=== PATIENT | female | born 1955 | race Caucasian/White ===

== ENCOUNTER → 2017-03-14 | Outpatient (CLI) | payer OTHER | LOC: FIMAGING 11:52 | PROVIDERS: ATTEND Orthopaedic Surgery Orthopaedic Surgery of the Spine | DX: M54.5 Low back pain (principal); M21.752 Unequal limb length (acquired), left femur; Z98.1 Arthrodesis status ==

== ENCOUNTER → 2017-03-20 | Outpatient (CLI) | payer OTHER | LOC: FIMAGING 09:53 | DX: Z12.31 Encounter for screening mammogram for malignant neoplasm of breast (principal); Z80.3 Family history of malignant neoplasm of breast | CPT/HCPCS: G0202 ==

== ENCOUNTER → 2017-06-28 | Outpatient (CLI) | payer OTHER | LOC: FIMAGING 08:03 | PROVIDERS: ATTEND Internal Medicine | DX: K82.4 Cholesterolosis of gallbladder (principal); R91.1 Solitary pulmonary nodule; Z87.891 Personal history of nicotine dependence ==

== ENCOUNTER → 2017-08-15 | Outpatient (CLI) | payer OTHER | LOC: FIMAGING 09:56 | PROVIDERS: ATTEND Internal Medicine | DX: Z13.820 Encounter for screening for osteoporosis (principal); M81.0 Age-related osteoporosis without current pathological fracture ==

== ENCOUNTER → 2018-03-14 | Outpatient (CLI) | payer OTHER | LOC: FIMAGING 09:32 | PROVIDERS: ATTEND Obstetrics & Gynecology | DX: D25.2 Subserosal leiomyoma of uterus (principal); D25.9 Leiomyoma of uterus, unspecified ==

== ENCOUNTER → 2018-03-21 | Outpatient (CLI) | payer OTHER | LOC: FIMAGING 15:46 | PROVIDERS: ATTEND Obstetrics & Gynecology | DX: Z12.31 Encounter for screening mammogram for malignant neoplasm of breast (principal) ==

== ENCOUNTER → 2018-09-03 | Outpatient (CLI) | payer OTHER | LOC: FIMAGING 10:08 | PROVIDERS: ATTEND Internal Medicine | DX: K82.4 Cholesterolosis of gallbladder (principal) ==

== ENCOUNTER → 2019-05-27 | Outpatient (CLI) | payer OTHER | LOC: FIMAGING 12:51 ==